=== PATIENT | female | born 1930 | race Caucasian/White ===

== ENCOUNTER 2019-05-28 10:10 | Inpatient (IN) | payer OTHER ==
[~2019-05-28] VITALS: Ht 162.6 cm; Wt 94.7 kg
[~2019-05-28 10:10] MED LIST: ACET325T21 PO; AMIO200T42 PO; AMOX1TAB12 PO; APIX5TAB PO; ATOR10TA9 PO; AZIT500T10 PO; BISA10SU65 PR; BUPR-173 PO; CALC200T56 PO; CHOLESTEROL; DIPH25CA61 PO; DOCU-131 PO; GUAI600T31 PO; LEVO150T PO; LISI-167 PO; METO25TA91 PO; METR500T PO; OMEP-110 PO; ONDA4TAB7 PO; POLY17PO5 PO; SIME80TA16 PO; TRAM50TA2 PO
--- NOTE | 2019-05-28 11:27 | NUR ---
PT TO ROOM VIA WHEELCHAIR W/ DAUGHTER. C/O GIB X 1 WK, BRIGHT RED BMS. 1 BM/DAY. C/O DIZZY. NO FALLS/SYNCOPE BUT FEELS WEAK. VAN SUSAN IN ROOM, CHAPERONED RECTAL +BRIGHT RED BLOOD. DENIES ABD PAIN. ABD SOFT. VSS. O2 WNL. PIV EST, LABS SENT. A&oX4. HX GIB 10 YEARS AGO R/T IBUPROFEN, DENIES THINNERS/NSAIDS. CALL RODRIGUES IN REACH.
[2019-05-28] MEDS ORDERED: SODIUM CHLORIDE FLUSH 10ML SYR IVF ONE (11:30)
[2019-05-28 11:48] LABS: BASOPHILS # (AUTO) 0.03 x10^3/uL (0-0.1); BASOPHILS % (AUTO) 0 % (0-1); EOSINOPHILS # (AUTO) 0.04 x10^3/uL (0-0.4); EOSINOPHILS % (AUTO) 1 % (1-7); LYMPHOCYTES # (AUTO) 1.81 x10^3/uL (1-3.4); LYMPHOCYTES % (AUTO) 20 % (22-44); MD NO; MEAN CORPUSCULAR HEMOGLOBIN 31.7 pg (27.0-34.8); MEAN CORPUSCULAR HGB CONC 33.2 g/dL (32.4-35.8); MEAN CORPUSCULAR VOLUME 95.6 fL (80-100); MEAN PLATELET VOLUME 10.8 fL (7.4-10.4); MONOCYTES # (AUTO) 0.71 x10^3/uL (0.2-0.8); MONOCYTES % (AUTO) 8 % (2-9); NEUTROPHILS # (AUTO) 6.49 x10^3/uL (1.8-6.8); NEUTROPHILS % (AUTO) 72 % (42-75); PLATELET COUNT 183 x10^3/uL (130-400); RED CELL DISTRIBUTION WIDTH 14.9 % (9.6-15.2)
[2019-05-28 11:49] LABS: INTERNATIONAL NORMALIZED RATIO 1.04 (0.93-1.1)
[2019-05-28 11:51] LABS: ALANINE AMINOTRANSFERASE 17 U/L (12-78); ANION GAP 7 mmol/L (5-15); CALCIUM 8.2 mg/dL (8.5-10.1); CHLORIDE 107 mmol/L (98-107); CREATININE 0.82 mg/dL (0.55-1.02)
[2019-05-28 11:54] LABS: ALKALINE PHOSPHATASE 98 U/L (45-117); BILIRUBIN,TOTAL 0.8 mg/dL (0.2-1.0); TOTAL PROTEIN 6.6 g/dL (6.4-8.2)
--- NOTE | 2019-05-28 12:09 | NUR ---
H/H 12.1/36.4. RECHECK.
[2019-05-28] MEDS ORDERED: MOVIPREP POWDER 1 PREP KIT PO ONE (13:00)
--- NOTE | 2019-05-28 14:42 | NUR ---
HOSPITALIST WAS IN ROOM FOR EVAL.
--- NOTE | 2019-05-28 14:51 | NUR ---
given broth. npo after midnight. called for hospital bed. call james. as
[2019-05-28] MEDS ORDERED: SODIUM CHLORIDE 0.9% 1,000 ML IV SCH (14:52)
[2019-05-28] MEDS ORDERED: ONDANSETRON 2MG/ML, 2ML IVPush PRN (15:00)
[2019-05-28] MEDS ORDERED: PROMETHAZINE 25 MG/ML, 1ML IM PRN (15:00)
[2019-05-28] MEDS ORDERED: LABETALOL 5MG/ML, 20ML IVPush PRN (15:00)
[2019-05-28] MEDS ORDERED: OXYcodone/APAP 5/325MG TABLET PO PRN (15:00)
[2019-05-28] MEDS ORDERED: hydrALAzine 20 MG/ML, 1ML IVPush PRN (15:00)
--- NOTE | 2019-05-28 15:51 | NUR ---
PT MOVED TO HOSPITAL BED. REPORT TO JV TOLENTINO.
[2019-05-28 17:15] VITALS: BP 106/56
[2019-05-28 18:51] VITALS: BP 98/64
[2019-05-28] MEDS: ATORVASTATIN 10 MG TABLET PO SCH (20:16)
[2019-05-29 01:00] VITALS: BP 137/73
[2019-05-29 03:42] LABS: BASOPHILS # (AUTO) 0.03 x10^3/uL (0-0.1); BASOPHILS % (AUTO) 0 % (0-1); EOSINOPHILS # (AUTO) 0.05 x10^3/uL (0-0.4); EOSINOPHILS % (AUTO) 1 % (1-7); LYMPHOCYTES # (AUTO) 2.29 x10^3/uL (1-3.4); LYMPHOCYTES % (AUTO) 29 % (22-44); MD NO; MEAN CORPUSCULAR HEMOGLOBIN 31.8 pg (27.0-34.8); MEAN CORPUSCULAR HGB CONC 33.1 g/dL (32.4-35.8); MEAN CORPUSCULAR VOLUME 96.2 fL (80-100); MEAN PLATELET VOLUME 11.4 fL (7.4-10.4); MONOCYTES # (AUTO) 1.02 x10^3/uL (0.2-0.8); MONOCYTES % (AUTO) 13 % (2-9); NEUTROPHILS # (AUTO) 4.46 x10^3/uL (1.8-6.8); NEUTROPHILS % (AUTO) 57 % (42-75); PLATELET COUNT 169 x10^3/uL (130-400); RED BLOOD COUNT 3.14 x10^6/uL (3.82-5.3); RED CELL DISTRIBUTION WIDTH 15.6 % (9.6-15.2)
[2019-05-29 03:47] LABS: ALANINE AMINOTRANSFERASE 16 U/L (12-78); ALBUMIN 2.7 g/dL (3.4-5.0); ANION GAP 6 mmol/L (5-15); CALCIUM 7.8 mg/dL (8.5-10.1); CHLORIDE 118 mmol/L (98-107); CREATININE 0.69 mg/dL (0.55-1.02)
[2019-05-29 03:49] LABS: ALKALINE PHOSPHATASE 83 U/L (45-117); BILIRUBIN,TOTAL 0.6 mg/dL (0.2-1.0); TOTAL PROTEIN 5.9 g/dL (6.4-8.2)
[2019-05-29] MEDS ORDERED: SODIUM CHLORIDE 0.45% 1,000 ML IV SCH (05:00)
[2019-05-29] MEDS ORDERED: LEVOTHYROXINE 125 MCG TABLET PO SCH (06:00)
[2019-05-29 06:16] VITALS: BP 123/57
[2019-05-29] MEDS: METOPROLOL SUCCINATE 25 MG TAB.ER.24H PO SCH (06:22)
[2019-05-29] MEDS: LACTATED RINGERS 1,000 ML IV SCH (07:53)
[2019-05-29] MEDS: OMEPRAZOLE 20 MG CAPSULE.DR PO SCH (09:00)
[2019-05-29] MEDS: LISINOPRIL 10 MG TABLET PO SCH (09:00)
[2019-05-29] MEDS ORDERED: PROPOFOL 10 MG/ML, 50ML ONE (11:50)
[2019-05-29 14:51] VITALS: BP 131/79
[2019-05-29 18:31] VITALS: BP 135/78
[2019-05-29] MEDS: ATORVASTATIN 10 MG TABLET PO SCH (21:46)
[2019-05-30] MEDS: LACTATED RINGERS 1,000 ML IV SCH (01:08)
[2019-05-30 01:18] VITALS: BP 122/79
[2019-05-30] MEDS: ACETAMINOPHEN 325 MG TABLET PO PRN ×2 (04:17→20:09)
[2019-05-30 05:52] LABS: MEAN CORPUSCULAR HEMOGLOBIN 31.6 pg (27.0-34.8); MEAN CORPUSCULAR HGB CONC 32.9 g/dL (32.4-35.8); MEAN CORPUSCULAR VOLUME 96.2 fL (80-100); RED BLOOD COUNT 2.34 x10^6/uL (3.82-5.3); RED CELL DISTRIBUTION WIDTH 15.7 % (9.6-15.2)
[2019-05-30 05:54] VITALS: BP 127/71
[2019-05-30] MEDS: METOPROLOL SUCCINATE 25 MG TAB.ER.24H PO SCH (05:55)
[2019-05-30 05:58] LABS: CHLORIDE 115 mmol/L (98-107)
[2019-05-30 06:04] LABS: ALANINE AMINOTRANSFERASE 13 U/L (12-78); ALBUMIN 2.3 g/dL (3.4-5.0); ALKALINE PHOSPHATASE 67 U/L (45-117); ANION GAP 6 mmol/L (5-15); BILIRUBIN,TOTAL 0.6 mg/dL (0.2-1.0); CALCIUM 7.4 mg/dL (8.5-10.1); CREATININE 0.51 mg/dL (0.55-1.02); TOTAL PROTEIN 4.9 g/dL (6.4-8.2)
[2019-05-30 06:19] LABS: MD YES
[2019-05-30 06:21] LABS: BASOS#(MANUAL) 0.15 x10^3/uL (0-0.1); BASOS% (MANUAL) 2 % (0-1); EOS#(MANUAL) 0.39 x10^3/uL (0.0-0.4); EOS% (MANUAL) 5 % (1-7); LYMPH#(MANUAL) 3.08 x10^3/uL (1-3.4); LYMPHS% (MANUAL) 40 % (22-44); MONOS% (MANUAL) 13 % (2-9); SEG#(MANUAL) 3.08 x10^3/uL (1.8-6.8); SEGS% (MANUAL) 40 % (42-75)
[2019-05-30 06:27] LABS: MEAN PLATELET VOLUME 11.3 fL (7.4-10.4); PLATELET COUNT 172 x10^3/uL (130-400)
[2019-05-30 06:28] LABS: <RBC MORPHOLOGY> NORMAL
[2019-05-30 06:29] LABS: <PLATELET ESTIMATE> ADEQUATE; GIANT PLATELETS 1+; LARGE PLATELETS 1+
[2019-05-30 07:15] VITALS: BP 133/54
[2019-05-30] MEDS: LEVOTHYROXINE 150 MCG TABLET PO SCH (09:39)
[2019-05-30] MEDS: OMEPRAZOLE 20 MG CAPSULE.DR PO SCH (09:39)
[2019-05-30] MEDS: POTASSIUM CHLORIDE 20 MEQ TAB.ER.PRT PO SCH ×2 (09:39→18:16)
[2019-05-30] MEDS: LISINOPRIL 10 MG TABLET PO SCH (09:39)
[2019-05-30 12:26] VITALS: BP 119/71
[2019-05-30 18:22] VITALS: BP 150/76
[2019-05-30] MEDS ORDERED: DIPHENHYDRAMINE 25 MG CAPSULE PO PRN (20:00)
[2019-05-30] MEDS: ATORVASTATIN 10 MG TABLET PO SCH (20:09)
[2019-05-31 00:29] VITALS: BP 130/58
[2019-05-31] MEDS: METOPROLOL SUCCINATE 25 MG TAB.ER.24H PO SCH (05:36)
[2019-05-31 07:06] LABS: ALBUMIN 2.3 g/dL (3.4-5.0); ANION GAP 4 mmol/L (5-15); CALCIUM 7.6 mg/dL (8.5-10.1); CHLORIDE 113 mmol/L (98-107)
[2019-05-31 07:11] LABS: ALANINE AMINOTRANSFERASE 13 U/L (12-78); ALKALINE PHOSPHATASE 75 U/L (45-117); BILIRUBIN,TOTAL 0.5 mg/dL (0.2-1.0); CREATININE 0.69 mg/dL (0.55-1.02); TOTAL PROTEIN 5.2 g/dL (6.4-8.2)
[2019-05-31] MEDS ORDERED: POTASSIUM CHLORIDE 20 MEQ in SODIUM CHLORIDE 0.9% 250 ML IV ONE (07:30)
[2019-05-31 08:02] VITALS: BP 155/83
[2019-05-31] MEDS: OMEPRAZOLE 20 MG CAPSULE.DR PO SCH (08:43)
[2019-05-31] MEDS: LEVOTHYROXINE 150 MCG TABLET PO SCH (08:43)
[2019-05-31] MEDS: LISINOPRIL 10 MG TABLET PO SCH (08:43)
[2019-05-31] MEDS: POTASSIUM CHLORIDE 20 MEQ TAB.ER.PRT PO SCH (08:43)
[2019-05-31 12:19] VITALS: BP 147/73
== END 2019-05-31 17:00 | disposition home or self-care (01) | DRG 378 ==
LOC: ED 11:54 → EDIP 12:11 → 3N 16:09 → DCLOUNGE 05-31 16:52
PROVIDERS: ADMIT Hospitalist; ATTEND Family Medicine
PROC: 0W3P8ZZ Control Bleeding in Gastrointestinal Tract, Via Natural or Artificial Opening Endoscopic (ICD-10-PCS; 2019-05-29)
PROC: 0DJ08ZZ Inspection of Upper Intestinal Tract, Via Natural or Artificial Opening Endoscopic (ICD-10-PCS; principal; 2019-05-29 11:30)
DX: K57.31 Diverticulosis of large intestine without perforation or abscess with bleeding (principal); E87.0 Hyperosmolality and hypernatremia; D62 Acute posthemorrhagic anemia; K63.5 Polyp of colon; I48.91 Unspecified atrial fibrillation; Z88.2 Allergy status to sulfonamides; E03.9 Hypothyroidism, unspecified; E78.00 Pure hypercholesterolemia, unspecified; E78.5 Hyperlipidemia, unspecified; E87.6 Hypokalemia; I10 Essential (primary) hypertension; K21.9 Gastro-esophageal reflux disease without esophagitis; K44.9 Diaphragmatic hernia without obstruction or gangrene; K64.8 Other hemorrhoids; Z80.0 Family history of malignant neoplasm of digestive organs; Z86.19 Personal history of other infectious and parasitic diseases; Z87.19 Personal history of other diseases of the digestive system; Z90.710 Acquired absence of both cervix and uterus
CPT/HCPCS: 36415; 80053; 84443; 85014; 85018; 85025; 85610; 85730; 86850; 86900; 99285; G0378; J2704; J3480; J7030; J7050; J7120; Q0163

== ENCOUNTER 2020-01-07 19:13 | Inpatient (IN) | payer OTHER ==
[~2020-01-07] VITALS: Ht 162.6 cm; Wt 98.2 kg
[~2020-01-07 19:13] MED LIST changes: +ACET-2274 PO; -ACET325T21 PO
--- NOTE | 2020-01-07 19:33 | NUR ---
KD. A&o x4, poor historian. Per pt, she has had increased issues with memory x "months and months." Pt states atraumatic L leg pain from ankle to thigh x months, worsening x1 week. Pt expresses 10/10 pain with movement. Denies numbness/tingling. (+) DP pulses. No gross deformities noted. Medicated with 100 mcg Fentanyl by [facility].
[2020-01-07] MEDS ORDERED: ONDANSETRON 2MG/ML, 2ML ONE (20:16)
[2020-01-07] MEDS ORDERED: MORPHINE SULFATE 4 MG/ML, 1ML ONE ×2 (20:17→21:02)
[2020-01-07] MEDS: MORPHINE SULFATE 4 MG/ML, 1ML IVPush PRN ×2 (20:25→21:04)
[2020-01-07] MEDS ORDERED: ONDANSETRON 2MG/ML, 2ML IVPush ONE (20:30)
[2020-01-07] MEDS ORDERED: SODIUM CHLORIDE FLUSH 10ML SYR IVF ONE (20:30)
[2020-01-07 21:43] LABS: ALANINE AMINOTRANSFERASE 20 U/L (12-78); ALBUMIN 3.6 g/dL (3.4-5.0); ANION GAP 5 mmol/L (5-15); C-REACTIVE PROTEIN, QUANT 0.32 mg/dL (0.02-0.49); CALCIUM 8.4 mg/dL (8.5-10.1); CHLORIDE 107 mmol/L (98-107); CREATININE 0.74 mg/dL (0.55-1.02)
[2020-01-07 21:46] LABS: ALKALINE PHOSPHATASE 100 U/L (45-117); BASOPHILS % (AUTO) 1 % (0-1); BILIRUBIN,TOTAL 0.6 mg/dL (0.2-1.0); EOSINOPHILS % (AUTO) 1 % (1-7); LYMPHOCYTES % (AUTO) 24 % (22-44); MEAN CORPUSCULAR HEMOGLOBIN 20.8 pg (27.0-34.8); MEAN PLATELET VOLUME 9.6 fL (7.4-10.4); MONOCYTES % (AUTO) 10 % (2-9); NEUTROPHILS % (AUTO) 64 % (42-75); PLATELET COUNT 254 x10^3/uL (130-400); RED BLOOD COUNT 4.24 x10^6/uL (3.82-5.3); RED CELL DISTRIBUTION WIDTH 20.2 % (9.6-15.2); TOTAL PROTEIN 7.8 g/dL (6.4-8.2)
[2020-01-07 21:47] LABS: HCT (SEDRATE) 30.1 % (34.6-47.8)
[2020-01-07 22:08] LABS: MD MORPH REVIEW ONLY; MEAN CORPUSCULAR HGB CONC 28.9 g/dL (32.4-35.8)
[2020-01-07 22:10] LABS: ANISOCYTOSIS 1+; MICROCYTOSIS 2+
[2020-01-07 22:11] LABS: HYPOCHROMIA 2+; OVALOCYTES 1+
[2020-01-07 22:12] LABS: <PLATELET ESTIMATE> ADEQUATE; LARGE PLATELETS 1+
--- NOTE | 2020-01-07 23:15 | NUR ---
Pt reports adequate pain control. Unchanged mental status. Grandson remains at bedside. Remains on continuous tele/O2 monitoring. Bed low, side rails up, call light within reach
[2020-01-07] MEDS ORDERED: SODIUM CHLORIDE 0.9%, 500ML IVBOLUS ONE (23:30)
--- NOTE | 2020-01-08 00:15 | NUR ---
Pt's grandson leaving for home. States he can be reached at any time. Anthony
[2020-01-08 01:35] VITALS: BP 136/61
--- NOTE | 2020-01-08 01:45 | NUR ---
Report given to Graciela TOLENTINO
[2020-01-08] MEDS ORDERED: ACETAMINOPHEN 325 MG TABLET PO PRN (02:00)
[2020-01-08] MEDS ORDERED: morphine SULFATE 10 MG/ML, 1ML IVPush PRN (02:00)
[2020-01-08] MEDS ORDERED: ONDANSETRON ODT 4 MG PO PRN (02:00)
[2020-01-08] MEDS: HEPARIN 5,000 UNITS/ML, 1ML SQ SCH ×3 (02:30→17:01)
[2020-01-08] MEDS ORDERED: LEVO100V8 PO (03:30)
[2020-01-08 05:39] LABS: BASOPHILS % (AUTO) 1 % (0-1); EOSINOPHILS % (AUTO) 2 % (1-7); LYMPHOCYTES % (AUTO) 21 % (22-44); MEAN CORPUSCULAR HEMOGLOBIN 21.1 pg (27.0-34.8); MEAN PLATELET VOLUME 9.6 fL (7.4-10.4); MONOCYTES % (AUTO) 11 % (2-9); NEUTROPHILS % (AUTO) 65 % (42-75); PLATELET COUNT 229 x10^3/uL (130-400); RED BLOOD COUNT 3.78 x10^6/uL (3.82-5.3); RED CELL DISTRIBUTION WIDTH 20.6 % (9.6-15.2)
[2020-01-08 06:12] LABS: MD SCAN; MEAN CORPUSCULAR HGB CONC 29.2 g/dL (32.4-35.8)
[2020-01-08 08:26] VITALS: BP 132/69
[2020-01-08] MEDS ORDERED: FENTANYL PF 100 MCG/2ML IVPush ONE ×2 (09:30→10:00)
[2020-01-08] MEDS: GABAPENTIN 100 MG CAPSULE PO SCH ×4 (10:29→21:12)
[2020-01-08] MEDS: DEXAMETHASONE INTENSOL 1 MG/ML ORAL SOL PO SCH ×4 (10:29→21:12)
[2020-01-08] MEDS ORDERED: FENTANYL PF 100 MCG/2ML IVPush PRN (10:30)
[2020-01-08 12:26] VITALS: BP 130/73
[2020-01-08] MEDS ORDERED: GADOTERATE 10 MMOL/20 ML SYR ONE (15:18)
[2020-01-08 18:28] VITALS: BP 111/69
[2020-01-08] MEDS: METHOCARBAMOL 500 MG TABLET PO PRN (23:56)
[2020-01-09 01:03] VITALS: BP 138/70
[2020-01-09] MEDS: HEPARIN 5,000 UNITS/ML, 1ML SQ SCH ×3 (01:13→18:23)
[2020-01-09] MEDS: HYDROcodone/APAP 5/325 TABLET PO PRN ×2 (01:13→16:25)
[2020-01-09] MEDS: GABAPENTIN 100 MG CAPSULE PO SCH ×4 (06:37→20:48)
[2020-01-09] MEDS: DEXAMETHASONE INTENSOL 1 MG/ML ORAL SOL PO SCH ×4 (06:37→20:47)
[2020-01-09] MEDS ORDERED: DEXAMETHASONE 4 MG TABLET ONE (08:34)
[2020-01-09] MEDS: POLYETHYLENE GLYCOL 17 GM PACKET PO SCH ×3 (08:41→20:47)
[2020-01-09 09:54] VITALS: BP 148/68
[2020-01-09] MEDS: DOCUSATE 100 MG CAPSULE PO PRN (10:48)
[2020-01-09 14:10] VITALS: BP 136/78
[2020-01-09 19:32] VITALS: BP 130/70
[2020-01-09] MEDS: MELATONIN 5 MG TABLET PO PRN (20:48)
[2020-01-09] MEDS: ATORVASTATIN 10 MG TABLET PO SCH (20:48)
[2020-01-10] MEDS: HYDROcodone/APAP 5/325 TABLET PO PRN ×3 (01:53→16:02)
[2020-01-10] MEDS: HEPARIN 5,000 UNITS/ML, 1ML SQ SCH ×3 (01:55→18:14)
[2020-01-10 01:56] VITALS: BP 129/82
[2020-01-10] MEDS: METHOCARBAMOL 500 MG TABLET PO PRN ×2 (04:00→16:29)
[2020-01-10 06:32] VITALS: BP 141/67
[2020-01-10] MEDS: DEXAMETHASONE INTENSOL 1 MG/ML ORAL SOL PO SCH ×4 (06:35→21:02)
[2020-01-10] MEDS: METOPROLOL SUCCINATE 25 MG TAB.ER.24H PO SCH (06:35)
[2020-01-10] MEDS: GABAPENTIN 100 MG CAPSULE PO SCH ×4 (06:35→21:01)
[2020-01-10] MEDS: LEVOTHYROXINE 150 MCG TABLET PO SCH (06:36)
[2020-01-10 07:26] VITALS: BP 158/79
[2020-01-10 08:51] LABS: BASOPHILS % (AUTO) 1 % (0-1); EOSINOPHILS % (AUTO) 0 % (1-7); LYMPHOCYTES % (AUTO) 13 % (22-44); MEAN CORPUSCULAR HEMOGLOBIN 20.9 pg (27.0-34.8); MEAN PLATELET VOLUME 9.8 fL (7.4-10.4); MONOCYTES % (AUTO) 5 % (2-9); NEUTROPHILS % (AUTO) 81 % (42-75); PLATELET COUNT 265 x10^3/uL (130-400); RED BLOOD COUNT 4.09 x10^6/uL (3.82-5.3); RED CELL DISTRIBUTION WIDTH 20.4 % (9.6-15.2)
[2020-01-10] MEDS: OMEPRAZOLE 20 MG CAPSULE.DR PO SCH (09:02)
[2020-01-10] MEDS: POLYETHYLENE GLYCOL 17 GM PACKET PO SCH ×3 (09:02→21:02)
[2020-01-10] MEDS: LISINOPRIL 10 MG TABLET PO SCH (09:02)
[2020-01-10] MEDS: IRON SUCROSE COMPLEX 100MG/5ML IV SCH (09:02)
[2020-01-10 09:21] LABS: MD SCAN; MEAN CORPUSCULAR HGB CONC 29.3 g/dL (32.4-35.8)
[2020-01-10 13:23] LABS: ABSOLUTE RETICS # 0.07 x10^6/uL (0.5-2.5); RED BLOOD COUNT 4.11 x10^6/uL (3.82-5.3); RETICULOCYTE COUNT % 1.71 % (0.5-1.5)
[2020-01-10 13:59] VITALS: BP 130/68
[2020-01-10] MEDS: LIDODERM 5% PATCH TD PRN (18:28)
[2020-01-10 19:28] VITALS: BP 137/72
[2020-01-10] MEDS: ATORVASTATIN 10 MG TABLET PO SCH (21:01)
[2020-01-11 00:54] VITALS: BP 147/74
[2020-01-11] MEDS: HYDROcodone/APAP 5/325 TABLET PO PRN ×2 (03:12→21:29)
[2020-01-11] MEDS: HEPARIN 5,000 UNITS/ML, 1ML SQ SCH ×3 (03:12→16:41)
[2020-01-11 05:30] VITALS: BP 162/81
[2020-01-11] MEDS: METOPROLOL SUCCINATE 25 MG TAB.ER.24H PO SCH (05:33)
[2020-01-11] MEDS: LEVOTHYROXINE 150 MCG TABLET PO SCH (05:33)
[2020-01-11] MEDS: DEXAMETHASONE INTENSOL 1 MG/ML ORAL SOL PO SCH ×4 (05:33→20:00)
[2020-01-11] MEDS: GABAPENTIN 100 MG CAPSULE PO SCH ×4 (05:33→19:59)
[2020-01-11 05:46] LABS: ALBUMIN 2.9 g/dL (3.4-5.0); ANION GAP 4 mmol/L (5-15); CALCIUM 8.8 mg/dL (8.5-10.1); CHLORIDE 106 mmol/L (98-107)
[2020-01-11 05:49] LABS: ALANINE AMINOTRANSFERASE 21 U/L (12-78); ALKALINE PHOSPHATASE 84 U/L (45-117); BILIRUBIN,TOTAL 0.5 mg/dL (0.2-1.0); CREATININE 0.69 mg/dL (0.55-1.02); TOTAL PROTEIN 6.9 g/dL (6.4-8.2)
[2020-01-11 05:59] LABS: BASOPHILS % (AUTO) 1 % (0-1); EOSINOPHILS % (AUTO) 0 % (1-7); LYMPHOCYTES % (AUTO) 20 % (22-44); MEAN CORPUSCULAR HEMOGLOBIN 21.2 pg (27.0-34.8); MEAN PLATELET VOLUME 9.7 fL (7.4-10.4); MONOCYTES % (AUTO) 10 % (2-9); NEUTROPHILS % (AUTO) 69 % (42-75); PLATELET COUNT 237 x10^3/uL (130-400); RED BLOOD COUNT 3.88 x10^6/uL (3.82-5.3); RED CELL DISTRIBUTION WIDTH 20.3 % (9.6-15.2)
[2020-01-11 06:16] LABS: MEAN CORPUSCULAR HGB CONC 29.4 g/dL (32.4-35.8)
[2020-01-11 06:17] LABS: MD NO
[2020-01-11 07:49] VITALS: BP 128/69
[2020-01-11] MEDS: OMEPRAZOLE 20 MG CAPSULE.DR PO SCH (08:37)
[2020-01-11] MEDS: IRON SUCROSE COMPLEX 100MG/5ML IV SCH (08:37)
[2020-01-11] MEDS: POLYETHYLENE GLYCOL 17 GM PACKET PO SCH ×3 (08:38→20:00)
[2020-01-11] MEDS: LISINOPRIL 10 MG TABLET PO SCH (08:38)
[2020-01-11] MEDS ORDERED: FLUMAZENIL 0.1 MG/1 ML, 5ML ONE (09:47)
[2020-01-11] MEDS ORDERED: MIDAZOLAM 1 MG/ML, 5ML ONE (09:47)
[2020-01-11] MEDS ORDERED: NALOXONE 1 MG/ML, 2ML ONE (09:47)
[2020-01-11] MEDS ORDERED: FENTANYL PF 100 MCG/2ML ONE ×2 (09:47)
[2020-01-11 12:38] LABS: MICROSCOPIC INDICATED
[2020-01-11 13:17] VITALS: BP 116/56
[2020-01-11] MEDS: ATORVASTATIN 10 MG TABLET PO SCH (19:59)
[2020-01-11 21:20] VITALS: BP 171/95
[2020-01-11 23:34] VITALS: BP 174/79
[2020-01-11] MEDS: ENALAPRILAT 1.25 MG/ML, 2ML IVPush PRN (23:34)
[2020-01-12] VITALS (8 sets, daily range): BP systolic 159–184; BP diastolic 56–104
[2020-01-12] MEDS: ENALAPRILAT 1.25 MG/ML, 2ML IVPush PRN (00:13)
[2020-01-12] MEDS: HEPARIN 5,000 UNITS/ML, 1ML SQ SCH ×3 (01:16→16:30)
[2020-01-12 01:45] LABS: OCCULT BLOOD NEGATIVE (NEGATIVE)
[2020-01-12] MEDS: MELATONIN 5 MG TABLET PO PRN (03:09)
[2020-01-12] MEDS: HYDROcodone/APAP 5/325 TABLET PO PRN ×3 (06:06→18:26)
[2020-01-12] MEDS: GABAPENTIN 100 MG CAPSULE PO SCH ×4 (06:07→20:12)
[2020-01-12] MEDS: METOPROLOL SUCCINATE 25 MG TAB.ER.24H PO SCH (06:07)
[2020-01-12] MEDS: LEVOTHYROXINE 150 MCG TABLET PO SCH (06:07)
[2020-01-12] MEDS: DEXAMETHASONE INTENSOL 1 MG/ML ORAL SOL PO SCH ×4 (06:07→20:13)
[2020-01-12] MEDS: OMEPRAZOLE 20 MG CAPSULE.DR PO SCH (08:32)
[2020-01-12] MEDS: IRON SUCROSE COMPLEX 100MG/5ML IV SCH (08:32)
[2020-01-12] MEDS: POLYETHYLENE GLYCOL 17 GM PACKET PO SCH (08:36)
[2020-01-12] MEDS: LISINOPRIL 10 MG TABLET PO SCH (08:36)
[2020-01-12] MEDS: LIDODERM 5% PATCH TD PRN (10:25)
[2020-01-12] MEDS ORDERED: POLYETHYLENE GLYCOL 17 GM PACKET PO PRN (10:30)
[2020-01-12] MEDS: ATORVASTATIN 10 MG TABLET PO SCH (20:12)
[2020-01-13 00:55] VITALS: BP 166/76
[2020-01-13 01:33] VITALS: BP 167/70
[2020-01-13] MEDS: HEPARIN 5,000 UNITS/ML, 1ML SQ SCH ×3 (02:05→17:28)
[2020-01-13] MEDS: LEVOTHYROXINE 150 MCG TABLET PO SCH (05:34)
[2020-01-13] MEDS: GABAPENTIN 100 MG CAPSULE PO SCH ×4 (05:34→20:52)
[2020-01-13] MEDS: METOPROLOL SUCCINATE 25 MG TAB.ER.24H PO SCH (05:34)
[2020-01-13 05:37] VITALS: BP 186/74
[2020-01-13 06:42] VITALS: BP 152/80
[2020-01-13] MEDS: HYDROcodone/APAP 5/325 TABLET PO PRN (09:05)
[2020-01-13] MEDS: IRON SUCROSE COMPLEX 100MG/5ML IV SCH (09:06)
[2020-01-13] MEDS: LISINOPRIL 10 MG TABLET PO SCH (09:06)
[2020-01-13] MEDS: OMEPRAZOLE 20 MG CAPSULE.DR PO SCH (09:06)
[2020-01-13] MEDS: DEXAMETHASONE INTENSOL 1 MG/ML ORAL SOL PO SCH ×3 (09:10→20:53)
[2020-01-13 13:03] VITALS: BP 153/66
[2020-01-13 19:10] VITALS: BP 151/80
[2020-01-13] MEDS: ATORVASTATIN 10 MG TABLET PO SCH (20:52)
[2020-01-14 00:22] VITALS: BP 155/79
[2020-01-14 05:28] VITALS: BP 146/76
[2020-01-14] MEDS: LEVOTHYROXINE 150 MCG TABLET PO SCH (05:30)
[2020-01-14] MEDS: HEPARIN 5,000 UNITS/ML, 1ML SQ SCH ×3 (05:30→20:42)
[2020-01-14] MEDS: GABAPENTIN 100 MG CAPSULE PO SCH ×4 (05:30→20:41)
[2020-01-14] MEDS: METOPROLOL SUCCINATE 25 MG TAB.ER.24H PO SCH (05:30)
[2020-01-14 06:50] VITALS: BP 130/72
[2020-01-14] MEDS: HYDROcodone/APAP 5/325 TABLET PO PRN (08:21)
[2020-01-14] MEDS: IRON SUCROSE COMPLEX 100MG/5ML IV SCH (08:21)
[2020-01-14] MEDS: LISINOPRIL 20 MG TABLET PO SCH (08:21)
[2020-01-14] MEDS: DEXAMETHASONE INTENSOL 1 MG/ML ORAL SOL PO SCH ×2 (08:21→20:42)
[2020-01-14] MEDS: OMEPRAZOLE 20 MG CAPSULE.DR PO SCH (08:21)
[2020-01-14 12:49] VITALS: BP 115/69
[2020-01-14 20:33] VITALS: BP 112/71
[2020-01-14] MEDS: ATORVASTATIN 10 MG TABLET PO SCH (20:41)
[2020-01-15 01:41] VITALS: BP 169/81
[2020-01-15 02:46] VITALS: BP 123/76
[2020-01-15 05:34] VITALS: BP 149/78
[2020-01-15] MEDS: LEVOTHYROXINE 150 MCG TABLET PO SCH (05:36)
[2020-01-15] MEDS: DOCUSATE 100 MG CAPSULE PO PRN (05:36)
[2020-01-15] MEDS: GABAPENTIN 100 MG CAPSULE PO SCH ×3 (05:36→16:00)
[2020-01-15] MEDS: METOPROLOL SUCCINATE 25 MG TAB.ER.24H PO SCH (05:36)
[2020-01-15] MEDS: HEPARIN 5,000 UNITS/ML, 1ML SQ SCH ×2 (05:36→13:30)
[2020-01-15 06:53] VITALS: BP 151/80
[2020-01-15] MEDS: OMEPRAZOLE 20 MG CAPSULE.DR PO SCH (08:34)
[2020-01-15] MEDS: LISINOPRIL 20 MG TABLET PO SCH (08:34)
[2020-01-15] MEDS: DEXAMETHASONE INTENSOL 1 MG/ML ORAL SOL PO SCH (08:35)
[2020-01-15] MEDS: IRON SUCROSE COMPLEX 100MG/5ML IV SCH (08:35)
[2020-01-15] MEDS ORDERED: POLY17PO5 PO (13:14)
[2020-01-15] MEDS ORDERED: METH500T7 PO (13:14)
[2020-01-15] MEDS ORDERED: GABA-826 PO (13:14)
[2020-01-15] MEDS ORDERED: LISI-170 PO (13:14)
[2020-01-15] MEDS ORDERED: FERR324T18 PO (13:14)
[2020-01-15] MEDS ORDERED: HYDR-3240 PO (13:14)
[2020-01-15] MEDS ORDERED: LEVO150T PO (13:14)
[2020-01-15] MEDS ORDERED: LIDO700A20 TD (13:14)
[2020-01-15 13:19] VITALS: BP 119/79
== END 2020-01-15 16:19 | DRG 551 ==
LOC: ED 20:29 → EDIP 01-08 00:37 → 3N 01-08 01:33
PROVIDERS: ADMIT Family Medicine; ATTEND Internal Medicine
PROC: 07DR3ZZ Extraction of Iliac Bone Marrow, Percutaneous Approach (ICD-10-PCS; principal; 2020-01-11)
DX: M51.36 Other intervertebral disc degeneration, lumbar region (principal); G92 Toxic encephalopathy; M79.662 Pain in left lower leg; R26.2 Difficulty in walking, not elsewhere classified; D53.9 Nutritional anemia, unspecified; E78.00 Pure hypercholesterolemia, unspecified; E78.5 Hyperlipidemia, unspecified; F03.90 Unspecified dementia, unspecified severity, without behavioral disturbance, psychotic disturbance, mood disturbance, and anxiety; F41.9 Anxiety disorder, unspecified; G89.29 Other chronic pain; E03.9 Hypothyroidism, unspecified; D50.9 Iron deficiency anemia, unspecified; K59.00 Constipation, unspecified; T40.2X5A Adverse effect of other opioids, initial encounter; K21.9 Gastro-esophageal reflux disease without esophagitis; I48.0 Paroxysmal atrial fibrillation; I10 Essential (primary) hypertension; Z90.710 Acquired absence of both cervix and uterus; Z87.891 Personal history of nicotine dependence; Z80.0 Family history of malignant neoplasm of digestive organs; Y92.89 Other specified places as the place of occurrence of the external cause
CPT/HCPCS: 36415; 38222; 72110; 72158; 77012; 80053; 81001; 82272; 82607; 82728; 83010; 83540; 83550; 83615; 83883; 84145; 84155; 84165; 84443; 85025; 85045; 85060; 85097; 85651; 86140; 88237; 88264; 88280; 88305; 88311; 88313; 93005; 96374; 96375; 96376; 99156; 99157; 99285; G0378; J1644; J1756; J2250; J2405; J3010; A9575; J2270; J2310; J7040